=== PATIENT | male | born 1960 | race Two or more races ===

== ENCOUNTER 2017-10-16 11:18 | Inpatient (IN) | payer MEDICAID, OTHER ==
[~2017-10-16] VITALS: Ht 175.3 cm; Wt 114.3 kg
[2017-10-16 12:27] LABS: BASOPHILS # (AUTO) 0.05 x10^3/uL (0-0.1); BASOPHILS % (AUTO) 1 % (0-1); EOSINOPHILS # (AUTO) 0.15 x10^3/uL (0-0.4); EOSINOPHILS % (AUTO) 2 % (1-7); LYMPHOCYTES # (AUTO) 2.81 x10^3/uL (1-3.4); LYMPHOCYTES % (AUTO) 46 % (22-44); MD NO; MEAN CORPUSCULAR HEMOGLOBIN 30.8 pg (27.5-34.5); MEAN CORPUSCULAR HGB CONC 33.1 g/dL (33.2-36.2); MEAN CORPUSCULAR VOLUME 93.1 fL (81-97); MEAN PLATELET VOLUME 7.3 fL (7.4-10.4); MONOCYTES # (AUTO) 0.44 x10^3/uL (0.2-0.8); MONOCYTES % (AUTO) 7 % (2-9); NEUTROPHILS % (AUTO) 43 % (42-75); PLATELET COUNT 209 x10^3/uL (130-400); RED BLOOD COUNT 4.73 x10^6/uL (4.38-5.82); RED CELL DISTRIBUTION WIDTH 12.6 % (9.4-14.8)
[2017-10-16] MEDS ORDERED: AMLO10TA4 PO (12:36)
[2017-10-16] MEDS ORDERED: GABA300C10 PO (12:36)
[2017-10-16] MEDS ORDERED: TIZA4CAP PO (12:36)
[2017-10-16] MEDS ORDERED: ALBU6.7H INH (12:36)
[2017-10-16] MEDS ORDERED: FLUT1DIS3 INH (12:36)
[2017-10-16] MEDS ORDERED: LISI40TA PO (12:36)
[2017-10-16 12:38] LABS: PROTHROMBIN TIME 10.4 Seconds (9.6-11.5)
[2017-10-16] MEDS ORDERED: HYDR-3240 PO (12:38)
[2017-10-16] MEDS ORDERED: BACL20TA PO (12:38)
[2017-10-16] MEDS ORDERED: OMEP-110 PO (12:38)
[2017-10-16 12:40] LABS: ALBUMIN 3.6 g/dL (3.4-5.0); ANION GAP 5 mmol/L (5-15); CALCIUM 8.3 mg/dL (8.5-10.1); CHLORIDE 103 mmol/L (98-107); CREATININE 0.87 mg/dL (0.7-1.3)
[2017-10-16 12:43] LABS: TROPONIN I 0.016 ng/mL (0.000-0.045)
[2017-10-16] MEDS ORDERED: NITROGLYCERIN SINGLE TAB 0.4 MG SL PRN (13:00)
[2017-10-16] MEDS ORDERED: LISINOPRIL 20 MG TABLET PO ONE (13:00)
[2017-10-16] MEDS ORDERED: MORPHINE SULFATE 4 MG/ML, 1ML IVPush PRN (13:00)
[2017-10-16] MEDS ORDERED: LORazepam 2 MG/ML, 1ML IVPush ONE (13:00)
[2017-10-16] MEDS ORDERED: LORazepam 2 MG/ML, 1ML ONE (13:42)
[2017-10-16] MEDS ORDERED: LISINOPRIL 20 MG TABLET ONE (13:42)
[2017-10-16] MEDS ORDERED: MORPHINE SULFATE 4 MG/ML, 1ML ONE (13:49)
[2017-10-16] MEDS ORDERED: CEFTRIAXONE PMX 1GM/50ML 50 ML ONE (13:59)
[2017-10-16] MEDS ORDERED: ASPIRIN 81 MG TABLET CHEW ONE (13:59)
[2017-10-16] MEDS ORDERED: CEFTRIAXONE PMX 1GM/50ML 50 ML IVPB ONE (14:00)
[2017-10-16] MEDS ORDERED: ASPIRIN 81 MG TABLET CHEW PO ONE (14:00)
[2017-10-16] MEDS ORDERED: ONDANSETRON 2MG/ML, 2ML IVPush PRN (15:00)
[2017-10-16] MEDS ORDERED: ENOXAPARIN 40 MG/0.4 ML SQ SCH (15:00)
[2017-10-16] MEDS ORDERED: DOCUSATE 100 MG CAPSULE PO PRN (15:00)
[2017-10-16] MEDS ORDERED: BISACODYL 10 MG SUPP PR PRN (15:00)
[2017-10-16] MEDS ORDERED: NITROGLYCERIN 0.4 MG BOTTLE (25 TABS) SL PRN (15:00)
[2017-10-16] MEDS ORDERED: LABETALOL 5MG/ML, 20ML IVPush PRN (15:00)
[2017-10-16] MEDS ORDERED: AZITHROMYCIN 500 MG TABLET PO ONE (15:00)
[2017-10-16] MEDS ORDERED: POLYETHYLENE GLYCOL 17 GM PACKET PO PRN (15:00)
[2017-10-16 16:27] VITALS: BP 150/97
[2017-10-16] MEDS ORDERED: ALBUTEROL SULFATE 2.5 MG/3 ML NPPB PRN (17:00)
[2017-10-16] MEDS: ACETAMINOPHEN 325 MG TABLET PO PRN ×2 (17:23→22:40)
[2017-10-16 18:26] LABS: TROPONIN I 0.015 ng/mL (0.000-0.045)
[2017-10-16 18:56] VITALS: BP 137/93
[2017-10-16] MEDS: GABAPENTIN 100 MG CAPSULE PO SCH (22:26)
[2017-10-16] MEDS: GUAIFENESIN ER 600 MG TABLET PO SCH (22:27)
[2017-10-16] MEDS: SODIUM CHLORIDE FLUSH 10ML SYR IVF SCH (22:30)
[2017-10-17 01:07] VITALS: BP 144/90
[2017-10-17 01:25] LABS: TROPONIN I 0.015 ng/mL (0.000-0.045)
[2017-10-17] MEDS ORDERED: ASPIRIN 325 MG TABLET EC PO SCH (06:00)
[2017-10-17 07:05] LABS: BASOPHILS # (AUTO) 0.06 x10^3/uL (0-0.1); BASOPHILS % (AUTO) 1 % (0-1); EOSINOPHILS % (AUTO) 2 % (1-7); LYMPHOCYTES # (AUTO) 2.52 x10^3/uL (1-3.4); LYMPHOCYTES % (AUTO) 48 % (22-44); MD NO; MEAN CORPUSCULAR HGB CONC 33.4 g/dL (33.2-36.2); MEAN CORPUSCULAR VOLUME 92.6 fL (81-97); MEAN PLATELET VOLUME 7.2 fL (7.4-10.4); MONOCYTES # (AUTO) 0.47 x10^3/uL (0.2-0.8); MONOCYTES % (AUTO) 9 % (2-9); NEUTROPHILS # (AUTO) 2.06 x10^3/uL (1.8-6.8); NEUTROPHILS % (AUTO) 40 % (42-75); PLATELET COUNT 192 x10^3/uL (130-400); RED BLOOD COUNT 4.53 x10^6/uL (4.38-5.82); RED CELL DISTRIBUTION WIDTH 12.6 % (9.4-14.8)
[2017-10-17 07:20] LABS: ANION GAP 4 mmol/L (5-15); CALCIUM 8.6 mg/dL (8.5-10.1); CHLORIDE 106 mmol/L (98-107); CHOLESTEROL, TOTAL 155 mg/dL (140-239); CREATININE 0.97 mg/dL (0.7-1.3); TRIGLYCERIDES 109 mg/dL (50-200); VLDL CHOLESTEROL 22 mg/dL (0-25)
[2017-10-17 07:22] LABS: CHOL/HDL RATIO 2.6; HDL CHOL % 39 % (26-37); HDL CHOLESTEROL (DIRECT) 60 mg/dL (40-60); LDL CHOLESTEROL,CALCULATED 73 mg/dL (54-169); LDL/HDL RATIO 1.2 (0.5-3.0)
[2017-10-17 07:33] VITALS: BP 157/107
[2017-10-17] MEDS: GUAIFENESIN ER 600 MG TABLET PO SCH (08:14)
[2017-10-17] MEDS: SODIUM CHLORIDE FLUSH 10ML SYR IVF SCH (08:14)
[2017-10-17] MEDS: GABAPENTIN 100 MG CAPSULE PO SCH (08:15)
[2017-10-17] MEDS ORDERED: REGADENOSON 0.4 MG/5 ML SYRINGE ONE (08:53)
[2017-10-17] MEDS ORDERED: BACLOFEN 10 MG TABLET PO SCH (09:00)
[2017-10-17] MEDS ORDERED: AMLODIPINE 5 MG TABLET PO SCH (09:00)
[2017-10-17] MEDS ORDERED: LISINOPRIL 20 MG TABLET PO SCH (09:00)
[2017-10-17] MEDS ORDERED: FLUTICASONE/VILANTEROL 100-25MCG/INH INH SCH (09:00)
[2017-10-17] MEDS ORDERED: TIZANIDINE 4MG TABLET PO SCH (09:00)
[2017-10-17] MEDS ORDERED: ADVAIR INH SCH (12:00)
[2017-10-17] MEDS ORDERED: KETOROLAC 30 MG/1 ML IVPush SCH (13:00)
[2017-10-17] MEDS ORDERED: TIZA4CAP PO (13:40)
[2017-10-17] MEDS ORDERED: FLUT1DIS3 INH (13:40)
[2017-10-17] MEDS ORDERED: LISI40TA PO (13:40)
[2017-10-17] MEDS ORDERED: BACL20TA PO (13:40)
[2017-10-17] MEDS ORDERED: ALBU6.7H INH (13:40)
[2017-10-17] MEDS ORDERED: GABA300C10 PO (13:40)
[2017-10-17] MEDS ORDERED: OMEP-110 PO (13:40)
[2017-10-17] MEDS ORDERED: AMLO10TA4 PO (13:40)
[2017-10-17] MEDS ORDERED: AZIT250T89 PO (13:42)
[2017-10-17 14:05] VITALS: BP 150/85
== END 2017-10-17 15:33 | disposition home or self-care (01) | DRG 304 ==
LOC: ED 13:48 → EDIP 13:49 → ED 14:34 → 5SO 16:25
PROVIDERS: ADMIT Internal Medicine; ATTEND Internal Medicine
DX: I11.9 Hypertensive heart disease without heart failure (principal); J18.9 Pneumonia, unspecified organism; F17.210 Nicotine dependence, cigarettes, uncomplicated; G89.29 Other chronic pain; J45.909 Unspecified asthma, uncomplicated; K21.9 Gastro-esophageal reflux disease without esophagitis; R07.89 Other chest pain; M54.30 Sciatica, unspecified side; Z82.49 Family history of ischemic heart disease and other diseases of the circulatory system; Z86.73 Personal history of transient ischemic attack (TIA), and cerebral infarction without residual deficits
CPT/HCPCS: 36415; 71045; 78452; 80048; 80061; 82040; 83605; 84484; 85025; 85610; 85730; 87040; 93005; 93017; 96374; 96375; J0696; J1650; J1885; J2785; A9502; C9898; J2060

== ENCOUNTER 2017-11-01 16:33 | Emergency (ER) | payer OTHER ==
[~2017-11-01] VITALS: Ht 175.3 cm; Wt 115.8 kg
[~2017-11-01 16:33] MED LIST: ALBU6.7H INH; AMLO10TA4 PO; AZIT250T89 PO; BACL20TA PO; FLUT1DIS3 INH; GABA300C10 PO; HYDR-3240 PO; LISI40TA PO; OMEP-110 PO; TIZA4CAP PO
[2017-11-01 16:35] VITALS: BP 167/107
[2017-11-01] MEDS ORDERED: SODIUM CHLORIDE 0.9% 1,000ML IVBOLUS ONE (17:00)
[2017-11-01] MEDS ORDERED: FAMOTIDINE 20 MG/2 ML IVP ONE (17:00)
[2017-11-01] MEDS ORDERED: ONDANSETRON 2MG/ML, 2ML IVPush ONE (17:00)
[2017-11-01] MEDS ORDERED: SODIUM CHLORIDE FLUSH 10ML SYR IVF ONE (17:00)
[2017-11-01 17:10] LABS: RAPID INFLUENZA A Negative (Negative); RAPID INFLUENZA B Negative (Negative)
[2017-11-01 17:47] LABS: ALANINE AMINOTRANSFERASE 23 U/L (12-78); ALBUMIN 3.8 g/dL (3.4-5.0); ANION GAP 7 mmol/L (5-15); BASOPHILS # (AUTO) 0.02 x10^3/uL (0-0.1); BASOPHILS % (AUTO) 0 % (0-1); CALCIUM 8.4 mg/dL (8.5-10.1); CHLORIDE 106 mmol/L (98-107); CREATININE 0.97 mg/dL (0.7-1.3); EOSINOPHILS # (AUTO) 0.13 x10^3/uL (0-0.4); EOSINOPHILS % (AUTO) 2 % (1-7); LYMPHOCYTES # (AUTO) 1.87 x10^3/uL (1-3.4); LYMPHOCYTES % (AUTO) 33 % (22-44); MD NO; MEAN CORPUSCULAR HEMOGLOBIN 30.4 pg (27.5-34.5); MEAN CORPUSCULAR HGB CONC 32.4 g/dL (33.2-36.2); MEAN CORPUSCULAR VOLUME 93.7 fL (81-97); MEAN PLATELET VOLUME 7.6 fL (7.4-10.4); MONOCYTES # (AUTO) 0.48 x10^3/uL (0.2-0.8); MONOCYTES % (AUTO) 9 % (2-9); NEUTROPHILS # (AUTO) 3.21 x10^3/uL (1.8-6.8); NEUTROPHILS % (AUTO) 56 % (42-75); PLATELET COUNT 208 x10^3/uL (130-400); RED BLOOD COUNT 5.11 x10^6/uL (4.38-5.82)
[2017-11-01 17:50] LABS: ALKALINE PHOSPHATASE 75 U/L (45-117); BILIRUBIN,TOTAL 0.4 mg/dL (0.2-1.0); TOTAL PROTEIN 7.9 g/dL (6.4-8.2)
[2017-11-01] MEDS ORDERED: IBUPROFEN 200 MG TABLET ONE (20:55)
[2017-11-01] MEDS ORDERED: ACETAMINOPHEN 500 MG TABLET ONE (20:55)
[2017-11-01] MEDS ORDERED: IBUPROFEN 200 MG TABLET PO ONE (21:00)
[2017-11-01] MEDS ORDERED: ACETAMINOPHEN 500 MG TABLET PO ONE (21:00)
== END 2017-11-01 21:07 | disposition home or self-care (01) ==
LOC: ED 20:55
DX: B34.9 Viral infection, unspecified (principal); R19.7 Diarrhea, unspecified; I10 Essential (primary) hypertension; J45.909 Unspecified asthma, uncomplicated; Z86.73 Personal history of transient ischemic attack (TIA), and cerebral infarction without residual deficits
CPT/HCPCS: 36415; 74022; 80053; 83690; 85025; 87400; 99285

== ENCOUNTER 2018-01-18 01:32 | Emergency (ER) | payer MEDICAID, OTHER ==
[~2018-01-18] VITALS: Ht 177.8 cm; Wt 111.6 kg
[2018-01-18 01:36] VITALS: BP 143/93
[2018-01-18] MEDS ORDERED: KETOROLAC 30 MG/1 ML ONE (02:12)
[2018-01-18] MEDS ORDERED: ONDANSETRON ODT 4 MG ONE (02:12)
[2018-01-18] MEDS ORDERED: KETOROLAC 30 MG/1 ML IM ONE (02:30)
[2018-01-18] MEDS ORDERED: ONDANSETRON ODT 4 MG PO ONE (02:30)
== END 2018-01-18 03:10 | disposition home or self-care (01) ==
LOC: ED 02:19
DX: G44.219 Episodic tension-type headache, not intractable (principal); G43.909 Migraine, unspecified, not intractable, without status migrainosus; I10 Essential (primary) hypertension; K21.9 Gastro-esophageal reflux disease without esophagitis; Z86.73 Personal history of transient ischemic attack (TIA), and cerebral infarction without residual deficits
CPT/HCPCS: 96372; 99283; J1885; Q0162